=== PATIENT | male | born 1995 | race Caucasian/White ===

== ENCOUNTER 2017-10-09 08:01 | Emergency (ER) | payer OTHER ==
--- NOTE | 2017-10-09 08:10 | EDPHY ---
H & P Time Seen by Provider: 10/09/17 08:10 HPI/ROS: CHIEF COMPLAINT: Alcohol intoxication HISTORY OF PRESENT ILLNESS: The patient presents the emergency department with alcohol intoxication. By report, the police were called to an apartment secondary to a noise complaint. They found the patient lying on the couch and he was unable to ambulate and had decreased responsiveness. He was brought to the emergency department for further evaluation. The patient does arrive in improved condition. He is alert and oriented x4. He denies acute complaints. He reports having 5 alcoholic shots last night. He denies any history of fall or trauma. REVIEW OF SYSTEMS: A comprehensive 10 point review of systems is otherwise negative aside from elements mentioned in the history of present illness. Source: Patient Exam Limitations: No limitations - Medical/Surgical History PMH: Past medical history: Noncontributory - Family History Significant Family History: No pertinent family hx - Social History Smoking Status: Never smoked Alcohol Use: Occasionally - Physical Exam Exam: General Appearance: Alert, arousable, no acute distress Eyes: Pupils equal and round no pallor or injection ENT, Mouth: Mucous membranes moist Respiratory: There are no retractions, lungs are clear to auscultation Cardiovascular: Regular rate and rhythm Gastrointestinal: Abdomen is soft and nontender, no masses, bowel sounds normal Neurological: A&O, normal motor function, normal sensory exam, normal cranial nerves Skin: Warm and dry, no rashes Musculoskeletal: Neck is supple nontender Extremities: symmetrical, full range of motion Constitutional: Initial Vital Signs Temperature (C) 36.8 C 10/09/17 08:10 Heart Rate 92 10/09/17 08:10 Respiratory Rate 15 10/09/17 08:10 Blood Pressure 135/68 H 10/09/17 08:10 O2 Sat (%) 97 10/09/17 08:10 O2 Delivery Mode Room Air Allergies/Adverse Reactions: Penicillins Allergy (Verified 10/09/17 08:23) Home Medications: Medication Instructions Recorded NK [No Known Home Meds] 10/09/17 Medical Decision Making ED Course/Re-evaluation: The patient presents to the ED with alcohol intoxication. His breath alcohol level is 0.219. The patient is conversant. He has no evidence of trauma noted on exam. He is neurologically intact. The patient has been medically cleared. The patient has contacted his father who will come pick him up in the emergency department. Further workup is not indicated at this point time. 9:40 a.m.: The patient's friends have come to the emergency department to pick him up. We have verify the after school driver of the vehicle is not intoxicated with a breathalyzer. Differential Diagnosis: Differential diagnosis considered includes alcohol intoxication, substance abuse , metabolic abnormality Departure - Departure Disposition: Home, Routine, Self-Care Clinical Impression: Alcoholic intoxication Condition: Good Instructions: Alcohol Intoxication (ED) Additional Instructions: 1. Avoid excessive consumption of alcohol as it can lead to serious impairment and . 2. Return to the ED for the development of any acute pain, uncontrolled vomiting or other concerns. Referrals: Patient,NotPresent [Unknown] - As per Instructions
[2017-10-09 08:16] VITALS: PULSE 92
[2017-10-09 09:56] VITALS: BP 114/61; RESP 16; TEMP 97.9; O2SAT 96
== END 2017-10-09 10:07 | disposition home or self-care (01) ==
LOC: EDUNIT#
DX: F10.129 Alcohol abuse with intoxication, unspecified (principal)